=== PATIENT | female | born 1970 | race Caucasian/White ===

== ENCOUNTER 2016-11-07 09:48 | Emergency (ER) | payer OTHER ==
[~2016-11-07] VITALS: Ht 157.5 cm; Wt 114.3 kg
[~2016-11-07 09:48] MED LIST: ALPRAZOLAM1 MG PO; ATARAX,VISTARIL25 MG PO; CLINDAMYCIN HC300 MG PO; CLOTRIMAZOLE15 GM TP; FLONASE16 G1 BOTH NARES; GUAIFENESIN600 MG PO; KEFLEX500 MG PO; METHADONE HCL40 MG PO; METHADONE5 MG PO; MOTRIN600 MG PO; MOTRIN800 MG PO; NEURONTIN300 MG; NYAMYC60 GM TP; SOMA350 MG PO; TOPAMAX200 MG PO; VYVANSE50 MG PO; ZOFRAN4 MG PO; ZOLOFT100 MG PO
[2016-11-07 10:09] VITALS: BP 176/108
== END 2016-11-07 12:36 | disposition left against medical advice (07) ==
LOC: EME 09:48
DX: M25.512 Pain in left shoulder (principal); Z53.21 Procedure and treatment not carried out due to patient leaving prior to being seen by health care provider

== ENCOUNTER 2016-11-13 21:09 | Emergency (ER) | payer OTHER ==
[~2016-11-13] VITALS: Ht 157.5 cm; Wt 115.9 kg
[2016-11-14] MEDS ORDERED: VENTOLIN HFA18 GM IH (01:04)
[2016-11-14] MEDS ORDERED: TESSALON PERLE100 MG PO (01:04)
[2016-11-14] MEDS ORDERED: BACTRIM,SEPT1 TABLET PO (01:04)
[2016-11-14] MEDS ORDERED: PREDNISONE50 MG PO (01:04)
[2016-11-14 01:53] VITALS: BP 142/98
== END 2016-11-14 02:20 | disposition home or self-care (01) ==
LOC: EXP 21:09 → EME 21:09
DX: J20.9 Acute bronchitis, unspecified (principal); L02.414 Cutaneous abscess of left upper limb; L02.413 Cutaneous abscess of right upper limb; F17.210 Nicotine dependence, cigarettes, uncomplicated
CPT/HCPCS: 71020; 93005; 94640; 99281; 99283; J7512

== ENCOUNTER 2017-01-02 13:35 | Emergency (ER) | payer OTHER ==
[~2017-01-02] VITALS: Ht 157.5 cm; Wt 112.0 kg
[~2017-01-02 13:35] MED LIST changes: +BACTRIM,SEPT1 TABLET PO; +PREDNISONE50 MG PO; +TESSALON PERLE100 MG PO; +VENTOLIN HFA18 GM IH
[2017-01-02 16:39] LABS: HEMATOCRIT 38.3 % (36.0-46.0); MCH 27.8 PG (29.0-34.0); MCHC 32.6 G/DL (30.0-36.0); MCV 85.1 FL (83-99); MEAN PLAT.VOLUME 10.6 uM^3 (9.5-12.4); PLATELET COUNT 235 K/uL (156-360); RBC DIS.WIDTH-CV 13.7 % (11.8-14.6); RBC DIS.WIDTH-SD 43.1 % (39-53); WHITE BLOOD COUNT 7.9 K/uL (4.1-10.2)
[2017-01-02 16:47] LABS: CHLORIDE 105 mEq/L (99-109); POTASSIUM 3.3 mEq/L (3.7-5.4); SODIUM 140 mEq/L (136-147)
[2017-01-02 16:49] LABS: GLUCOSE 88 mg/dL (70-99)
[2017-01-02 16:50] LABS: ANION GAP 9 MEQ/L (2-14)
[2017-01-02 16:52] LABS: GFR ESTIMATE (CALCULATED) > 59 mL/min/
[2017-01-02 16:53] LABS: UREA NITROGEN (BUN) 5 mg/dL (9-23)
[2017-01-02] MEDS ORDERED: VIBRAMYCIN100 MG PO (16:55)
[2017-01-02 17:40] VITALS: BP 154/95
== END 2017-01-02 17:41 | disposition home or self-care (01) ==
LOC: EME 13:35
PROVIDERS: Physician Assistant Medical
PROC: 0H9EXZZ Drainage of Left Lower Arm Skin, External Approach (ICD-10-PCS; principal; 2017-01-02)
DX: L02.414 Cutaneous abscess of left upper limb (principal); R11.2 Nausea with vomiting, unspecified; R19.7 Diarrhea, unspecified; F17.200 Nicotine dependence, unspecified, uncomplicated
CPT/HCPCS: 80048; 83605; 85027; 87040; 87070; 87075; 87077; 87147; 87186; 87205; 87801; 99281; 99284